=== PATIENT | female | born 2005 | race Caucasian/White ===

== ENCOUNTER 2024-08-15 14:49 | Emergency (ER) | payer OTHER, SELFPAY ==
[2024-08-15 14:51] VITALS: BP 109/63; PULSE 123; RESP 18; TEMP 36.2; O2SAT 99; BMI 19.2
--- NOTE | 2024-08-15 15:06 | EX.ED.GENINJ ---
HPI History of Present Illness Chief Complaint: Nausea/Vomiting [facility] Medical History (Updated 08/15/24 @ 14:56 by Amy Kat) Depression Asthma Sleep apnea ADHD Allergy/AdvReac Type Severity Reaction Status Date / Time No Known Allergies Allergy Verified 08/15/24 14:50 Surgical History (Updated 08/15/24 @ 14:57 by Amy Kat) H/O inguinal hernia repair Social History Smoking Status: Never smoker EXAM Physical Exam Const Vital Signs: 08/15/24 14:51 Temperature 97.1 F L Temperature Source Temporal Pulse Rate 123 H Respiratory Rate 18 Blood Pressure 109/63 Blood Pressure Mean 78 Pulse Ox 99 Oxygen Delivery Method Room Air MDM MDM MDM Narrative Medical decision making narrative: HISTORY OF PRESENT ILLNESS: 18 female presents with concern for nausea vomiting. She states that she started experience right flank pain yesterday. She notes the pain does not radiate to her groin. She notes since that time the pain is worse and she is developed nausea and vomiting has resolved. She denies history of kidney stones. She states she was seen at urgent care prior to arrival and thought she had a UTI. They also noted that they cannot rule out other things with the symptoms into the emergency department. Patient denies history abdominal surgeries. Her last period was last week. Denies vaginal bleeding. Denies chest pain or shortness of breath REVIEW OF SYSTEMS: Pertinent positives: Nausea, right flank pain Pertinent negatives: Vomiting, fever PHYSICAL EXAM: Nursing triage notes reviewed, Vital signs reviewed Constitutional: please see mdm HENT: MMM Eyes: Pupils equal round and reactive to light, Extraocular muscles intact Neck: No stridor, no JVD, full neck ROM Lungs: Clear to auscultation, No wheezing or rales. No increased work of breathing, no conversational dyspnea, no accessory muscle use, no nasal flaring. No respiratory distress noted Heart: Regular rate and rhythm, No murmurs, No rubs and No gallops, 2+ distal pulses (radial, femoral, posterior tibial) in all extremities Abdomen: Soft, there is no tenderness, rigidity, rebound or guarding, no obvious peritoneal signs, no palpable pulsatile abdominal masses, no auscultated abdominal bruit : Right CVA tenderness Extremities: No edema Neuro: No new focal neurological deficits, cranial nerves II through XII intact, 5/5 strength in all present extremities. Intact sensation to light touch in all present extremities, 2+ reflexes bilateral patella tendons. Skin: No rash or lesions noted MEDICAL DECISION MAKING: Chief Complaint: Nausea, External records reviewed: No recent ED evaluations. Reviewed allergies, home meds Factors affecting care: depression, asthma, ADHD, inguinal hernia repair Social determinants of health: none History obtained from others: Significant other Consults: none MDM Narrative: Patient was initially tachycardic with a rate of 123 otherwise hemodynamically stable afebrile and nontoxic-appearing. Abdomen was soft nontender with no peritoneal signs. She had right flank tenderness, right CVA tenderness. I considered the following differential diagnosis: Pyelonephritis, nephrolithiasis, AAA, UTI, musculoskeletal pain I obtained a broad lab and imaging workup to further elucidate the etiology of patient's complaints I initially resuscitated patient 1 L normal saline, gave 4 mg of IV Zofran for nausea and 15 mg of IV Toradol for pain ALL IMAGES (IF OBTAINED) HAVE BEEN PERSONALLY REVIEWED AND INTERPRETED BY MYSELF. Urinalysis consistent with likely UTI will send for culture CBC consistent with systemic information elevated white blood cell count, no anemia or thrombocytopenia BMP without evidence of significant electrolyte abnormalities, no anion gap, no acute kidney injury. Urine is CT scan abdomen pelvis noncontrast shows no evidence of nephrolithiasis or AAA The synthesis of the patient's history, physical exam, labs image suggest likely UTI/pyelonephritis. Will give empiric antibiotics and nausea medicine for home-going. Strict return precautions were discussed. The patient and/or family, caregivers express understanding. The patient and/or family, caregivers agrees with the plan. Shared decision making: I will have a discussion with the patient and or visitors regarding risk/benefits of further testing or admission. They will be made aware of of the risk/benefits inherent in this decision they will be given the opportunity to voice understanding. Total critical care time today provided was at least 0 minutes. This excludes separately billable procedures. Critical care time (if documented) is secondary to the patient having high probability of clinically significant/life threatening deterioration in the patient's condition which required my urgent intervention. Impression: 1. Acute flank pain 2. Nausea and vomiting Dispo: Discharge home This note was generated with Make My plate dictation software. It may contain incorrect words, spelling, and punctuation that were not noted in review of the chart prior to signing. Lab Data Labs: Laboratory Results - last 24 hr 08/15/24 08/15/24 15:43 15:53 WBC 12.9 H RBC 4.64 Hgb 13.0 Hct 39.1 MCV 84.3 MCH 28.0 MCHC 33.2 RDW Std Deviation 42.8 RDW Coeff of Ginger 13.9 Plt Count 372 MPV 10.1 Immature Gran % (Auto) 0.400 Neut % (Auto) 87.6 H Lymph % (Auto) 5.8 L [place] % (Auto) 6.0 Eos % (Auto) 0.0 Baso % (Auto) 0.2 Absolute Neuts (auto) 11.3 H Absolute Lymphs (auto) 0.75 L Nucleated RBC % 0 Sodium 138 Potassium 3.6 Chloride 105 Carbon Dioxide 26.0 Anion Gap 7 BUN 10 Creatinine 0.80 Estim Creat Clear Calc 82.45 Est GFR (MDRD) Af Amer 118 Est GFR (MDRD) Non-Af 98 BUN/Creatinine Ratio 12.5 Glucose 103 Calcium 9.2 Serum , Qual NEGATIVE Urine Color Yellow Urine Clarity Sl Cloudy Urine pH 6.0 Ur Specific Cocoa 1.015 Urine Protein 100 H Urine Glucose (UA) Normal Urine Ketones 50 H Urine Occult Blood 150 H Urine Nitrite Negative Urine Bilirubin Negative Urine Urobilinogen Normal Ur Leukocyte Esterase 500 H Urine RBC 10-25 SEEN Urine WBC >100 SEEN Ur Squamous Epith Cells 0-5 SEEN Urine Bacteria 1+ Urine Mucus 0 SEEN Radiography Diagnostic Testing: Clinical Impression(s) from Imaging Studies Abdomen/Pelvis CT 08/15/24 15:37 IMPRESSION: 1. No acute abnormality in the abdomen and pelvis. 2. Significant amount of stool in the colon. Correlate with constipation One or more dose reduction techniques were used (e.g., Automated exposure control, adjustment of the mA and/or kV according to patient size, use of iterative reconstruction technique). Reading Location: [facility] Discharge Plan Triage Chief Complaint: Nausea/Vomiting ED Provider: Negro Palomino Dx/Rx/DC Orders Instructions: ED Pyelonephritis, Female (Adult) Primary Care Provider: Care Physician,No Primary Referrals: Abner Abbott MD [Med Staff - Active Staff] - Activity Restrictions/Additional Instructions: Thank you for trusting us with your care today! Your labs and images are most consistent with likely kidney infection. This is cured with antibiotics. Please take antibiotics until course is complete. Please take Zofran as needed for nausea and vomiting at home. Please take Tylenol (2 pills, 650 mg), ibuprofen (2 pills, 400 mg) every 6 hours as needed for pain and fever control. Please return to the emergency department if your symptoms change or worsen. Specifically we cannot tolerate antibiotics by mouth.. Pain worsens suddenly. If you lose consciousness. Please follow with your primary care physician for further outpatient evaluation and management. Print Language: Divehi Disposition Disposition: Home, Self Care
--- NOTE | 2024-08-15 15:37 | CT_ITS ---
PROCEDURE: ABDOMEN/PELVIS WITHOUT CONT REASON FOR EXAM: Right flank pain kidney stone TECHNIQUE: Abdomen and pelvis CT with intravenous contrast. IV CONTRAST: COMPARISON: None. FINDINGS: Lung bases: Clear Liver: Normal size. No mass. Gallbladder: Unremarkable. Spleen: Normal size. Pancreas: Normal size without evidence of mass surrounding inflammation or ductal dilation. Adrenals: Unremarkable. Kidneys: Normal renal sizes. No hydronephrosis. No renal calculi. Bladder: Unremarkable. Reproductive Organs: Unremarkable. Bowel: No bowel obstruction. Significant amount of stool noted throughout the colon. Appendix: Normal. Lymph nodes: No suspicious lymph node enlargement. Vasculature: Major vascular structures are unremarkable. Peritoneum / Retroperitoneum: No ascites. No free air. Bones: Unremarkable. CT/Abdomen/Pelvis without Cont IMPRESSION: 1. No acute abnormality in the abdomen and pelvis. 2. Significant amount of stool in the colon. Correlate with constipation One or more dose reduction techniques were used (e.g., Automated exposure contr ol, adjustment of the mA and/or kV according to patient size, use of iterative reconstruction technique). Reading Location: [facility]
[2024-08-15] MEDS: Ketorolac 15 MG/ML Vial IV (15:45)
[2024-08-15] MEDS: 0.9% Normal Saline (1000mL) 1,000 ML 999 ML IV (15:45)
[2024-08-15] MEDS: Ondansetron 4 MG/2 ML Vial IV (15:45)
[2024-08-15 15:57] LABS: Absolute Lymphocyte Count 0.75 X10^3/uL (0.83-4.51); Absolute Neutrophil Count 11.3 X10^3/uL (2.0-7.7); Basophil# 0.02 X10^3/uL; Basophil% 0.2 % (0-1); Hematocrit 39.1 % (37-47); Lymphocyte # 0.75 X10^3/ul (0.83-4.51); Lymphocyte % 5.8 % (19-41); Mean Corp Hgb Conc 33.2 g/dL (32-36); Mean Corpuscular Volume 84.3 fL (81-99); Mean Platelet Vol. 10.1 fl (6.2-12.0); Monocyte# 0.77 X10^3/uL; NRBC Flagged by Analyzer 0 % (0-5); Neutrophil # 11.33 X10^3/uL (2.7-7.7); Neutrophil % 87.6 % (47-70); Platelet Count 372 K/mm3 (150-450); RBC Distribution Width CV 13.9 % (11.6-14.6); RBC Distribution Width SD 42.8 fl (35.1-43.9); Red Blood Count 4.64 M/mm3 (4.2-5.4); White Blood Count 12.9 K/mm3 (4.4-11.0)
[2024-08-15 16:00] LABS: Mucous, Urine 0 SEEN /hpf (<or=2+)
[2024-08-15 16:03] LABS: Color, Urine Yellow (Yellow); Glucose, Dipstick Normal (Normal); Ketone-Dipstick 50 mg/dl (Negative); Leukocyte Esterase-Dipstick 500 /ul (Negative); Nitrite-Dipstick Negative (Negative); Occult Blood-Urine 150 /ul (Negative); Protein-Dipstick 100 mg/dl (Negative); Specific Gravity, Urine 1.015 (1.002-1.030); Urine Bilirubin Dipstick Negative (Negative); Urine Urobilinogen Normal (Normal)
[2024-08-15 16:04] LABS: Red Blood Cells-Urine 10-25 SEEN /hpf (0-5); Squamous Epithelial Cells - UA 0-5 SEEN /hpf (5-10); Urine Clarity Sl Cloudy (Clear); White Blood Cells >100 SEEN /hpf (0-5)
[2024-08-15 16:05] LABS: Bacteria 1+ /hpf (None Seen)
[2024-08-15 16:06] LABS: Internal QC Validated? YES +Cl - CLEAR BKGD; Pregnancy, Serum, hCG Quali. NEGATIVE Negative
[2024-08-15 16:12] LABS: Anion Gap 7 (5-15); BUN 10 mg/dL (7-18); BUN/Creat Ratio 12.5 RATIO (10-20); Calcium,Total 9.2 mg/dL (8.5-10.1); Chloride 105 mmol/L (98-107); EST Glomerular Filtration Rate 98 mL/min (>60); Est Glom Filt Rate - Afr Amer 118 mL/min (>60); Estimated Creatinine Clearance 82.45 ml/min; Glucose 103 mg/dL (74-106); Potassium 3.6 mmol/L (3.5-5.1); Sodium Level 138 mmol/L (136-145)
[2024-08-15] MEDS: Smz/Tmp Ds Tablet 1 TABLET PO (16:51)
[2024-08-15 16:55] VITALS: BP 109/63; PULSE 103; RESP 18; TEMP 36.2; O2SAT 99
== END 2024-08-15 16:55 | disposition home or self-care (01) ==
PROVIDERS: Emergency Provider Emergency Medicine; Visit Provider Emergency Medicine
DX: R10.9 Unspecified abdominal pain (principal); R11.2 Nausea with vomiting, unspecified; F90.9 Attention-deficit hyperactivity disorder, unspecified type; G47.30 Sleep apnea, unspecified
CPT/HCPCS: 74176; 80048; 81001; 84703; 85025; 96361; 96374; 96375; 96376; 99283; A4216; J2405